=== PATIENT | female | born 1975 | race Caucasian/White ===

== ENCOUNTER 2016-11-01 19:02 | Emergency (ER) | payer SELFPAY ==
[~2016-11-01] VITALS: Ht 165.1 cm; Wt 95.3 kg
[2016-11-01 19:16] VITALS: BP 107/57
--- NOTE | 2016-11-01 19:55 | NUR ---
PT TAKEN TO XRAY FROM THE LOBBY
--- NOTE | 2016-11-01 20:03 | NUR ---
PT RETURN FROM XRAY TO THE LOBBY
--- NOTE | 2016-11-01 20:21 | NUR ---
PT TAKEN TO BED 8
--- NOTE | 2016-11-01 20:24 | NUR ---
Dr. Light evaluating patient at bedside.
[2016-11-01] MEDS ORDERED: LIDOCAINE 1% 500 MG/50 ML VIAL INJ ONE (20:40)
--- NOTE | 2016-11-01 20:40 | NUR ---
PATIENT PRESENTS TO ED WITH RT FOOT PAIN, SWELLING, FOR A WEEK, NO TRAUMA NOR INJURY DENIES N/V/D; SKIN IS PINK/WARM/DRY; AAOX4 WITH EVEN AND STEADY GAIT; LUNGS CLEAR BL; HR EVEN AND REGULAR; PT DENIES ANY FEVER, CP, SOB, OR COUGH AT THIS TIME; PATIENT STATES PAIN OF 9/10 AT THIS TIME; PATIENT POSITIONED FOR COMFORT; HOB ELEVATED; BEDRAILS UP X2; BED DOWN.
--- NOTE | 2016-11-01 20:52 | NUR ---
PT IN BED DRESSING ON RIGHT FOOT PER PT, PAIN LEVEL 5/10, NO BLEEDING NOTED ON RIGHT FOOT, RIGHT FOOT STILL SWOLLEN, SKIN WARM TO TOUCH RESP. EVEN AND UNLABORED, NO DISTRESS NOTED AT THIS TIME.
[2016-11-01 21:04] VITALS: BP 99/59
--- NOTE | 2016-11-01 21:05 | NUR ---
Patient discharged with v/s stable. Written and verbal after care instructions given and explained. Patient verbalized understanding. Ambulatory with steady gait. All questions addressed prior to discharge. Advised to follow up with PMD. AND PT AGREED WITH IT. PT ABLE TO DRINK ONE CUP OF ORANGE JUICE AND ATE CUP OF FRUIT, NO DISTRESS NOTED.
== END 2016-11-01 21:05 | disposition home or self-care (01) ==
LOC: MED 19:02
DX: M67.471 Ganglion, right ankle and foot (principal)
CPT/HCPCS: 10060; 73630; 99284; J2001

== ENCOUNTER 2017-08-10 18:38 | Emergency (ER) | payer MEDICAID ==
[~2017-08-10] VITALS: Ht 165.1 cm; Wt 101.0 kg
[2017-08-10 19:11] VITALS: BP 111/69
--- NOTE | 2017-08-10 19:23 | NUR ---
TO LOBBY A/W BED, VSS, EKG DONE, NSR, ERMD NOTED
--- NOTE | 2017-08-10 20:19 | NUR ---
42Y F BIB FAMILY C/O SUBSTERNAL CHEST PAIN THAT IS NON RADIAITING, SHARP, CONSTANT PAIN. PT STATES PAIN IS 9/10. PT STATES PAIN STARTED AROUND 12:30 MIDNIGHT LAST NIGHT. PT DENIES ANY N/V/D AT THE MOMENT. PT AAOX4. BREATHING IS UNLABORED AND EVEN. PT AMBULATED TO ER BED WITH STEADY GAIT.
[2017-08-10] MEDS ORDERED: LORazepam 2 MG/ML VIAL IM ONE (21:00)
[2017-08-10 22:08] VITALS: BP 96/69
== END 2017-08-10 22:08 | disposition home or self-care (01) ==
LOC: MED 18:38
DX: R06.4 Hyperventilation (principal); Z90.49 Acquired absence of other specified parts of digestive tract
CPT/HCPCS: 71045; 81025; 93005; 96372; 99284; J2060; Q0092

== ENCOUNTER 2018-06-10 14:50 | Emergency (ER) | payer MEDICAID ==
[~2018-06-10] VITALS: Ht 172.7 cm; Wt 95.3 kg
[2018-06-10 14:55] VITALS: BP 114/63
--- NOTE | 2018-06-10 14:55 | NUR ---
PT TRIAGED, EKG PERFORMED, EDMD AWARE OF PT STATUS, SENT OUT TO LOBBY AT THIS TIME.
--- NOTE | 2018-06-10 16:09 | NUR ---
PT AMBULATED TO BED 11 AT THIS TIME
--- NOTE | 2018-06-10 16:15 | NUR ---
BIB DAUGHTER C/O STERNAL CP 01/27 ACHING X 2 WEEKS. DENIES NVD, +SOB. RESPIRATIONS E/U AT THIS TIME. PT STATES SHE SAW PCP FOR PAIN MANAGEMENT AND THEY PERFORMED XRAYS WHICH WERE NEGATIVE SO SHE WAS TOLD TO COME TO THE ER. PATIENT IS AA0X4, VSS, BED DOWN, LOCKED, BED RAIL X1, ERMD AWARE AND NOTIFIED OF PATIENT STATUS HX---CHRONIC BACK PAIN, BACK SURGERY RX: GABAPENTIN
[2018-06-10] MEDS ORDERED: diphenhydrAMINE 50 MG/ML VIAL IM ONE (16:35)
[2018-06-10] MEDS ORDERED: MORPHINE SULFATE 4 MG/ML SYR IM ONE (16:35)
[2018-06-10] MEDS ORDERED: LORazepam 2 MG/ML VIAL IM ONE (16:35)
[2018-06-10] MEDS ORDERED: KETOROLAC 60 MG/2 ML VIAL IM ONE (16:35)
--- NOTE | 2018-06-10 16:35 | NUR ---
Patient being evaluated by physician at bedside.
--- NOTE | 2018-06-10 18:31 | NUR ---
Patient discharged with v/s stable. Written and verbal after care instructions given and explained. Patient alert, oriented and verbalized understanding of instructions. Ambulatory with steady gait. All questions addressed prior to discharge. ID band removed. Patient advised to follow up with PMD. Rx of TRAMDOL given. Patient educated on indication of medication including possible reaction and side effects. Opportunity to ask questions provided and answered.
[2018-06-10 18:34] VITALS: BP 108/60
== END 2018-06-10 18:31 | disposition home or self-care (01) ==
LOC: MED 14:50
DX: M54.9 Dorsalgia, unspecified (principal); G89.29 Other chronic pain; R07.9 Chest pain, unspecified; Z98.890 Other specified postprocedural states
CPT/HCPCS: 93005; 96372; 99283; J1200; J1885; J2060; J2270

== ENCOUNTER 2018-09-15 08:31 | Emergency (ER) | payer MEDICAID ==
[~2018-09-15] VITALS: Ht 165.1 cm; Wt 105.8 kg
[2018-09-15 08:36] VITALS: BP 113/55
--- NOTE | 2018-09-15 08:37 | NUR ---
PATIENT AMBULATED TO BED 11
--- NOTE | 2018-09-15 08:51 | NUR ---
BIB SELF W/ CO LOWER BACK SHARP PAIN RADIATING TO LLE X 1 WK. BOTH LEGS EDEMAOUS AND LEG FOOT NOTICED. DENIES N/V/D; SKIN IS PINK/WARM/DRY; AAOX4 WITH EVEN AND STEADY GAIT; PT DENIES ANY FEVER, CP, SOB, OR COUGH AT THIS TIME; PATIENT STATES PAIN OF 10/10 AT THIS TIME; VSS; PATIENT POSITIONED FOR COMFORT; HOB ELEVATED; BEDRAILS UP X2; BED DOWN. ER MD MADE AWARE OF PT STATUS. DAUGHTER IS AT BEDSIDE.
[2018-09-15] MEDS ORDERED: MORPHINE SULFATE 4 MG/ML SYR IM ONE (09:00)
[2018-09-15] MEDS ORDERED: KETOROLAC 30 MG/ML VIAL IM ONE (09:00)
[2018-09-15 09:51] VITALS: BP 97/63
--- NOTE | 2018-09-15 09:52 | NUR ---
Patient discharged with v/s stable. Written and verbal after care instructions given and explained. Patient verbalized understanding. Ambulatory with steady gait. All questions addressed prior to discharge. Advised to follow up with PMD. ID band removed. Education given to pt regading her low blood pressure.
== END 2018-09-15 09:52 | disposition home or self-care (01) ==
LOC: MED 08:31
DX: M54.9 Dorsalgia, unspecified (principal); G89.29 Other chronic pain
CPT/HCPCS: 81002; 81025; 96372; 99283; J1885; J2270

== ENCOUNTER 2018-12-13 13:45 | Emergency (ER) | payer MEDICAID ==
[~2018-12-13] VITALS: Ht 165.1 cm; Wt 104.3 kg
[2018-12-13 13:50] VITALS: BP 114/90
--- NOTE | 2018-12-13 13:55 | NUR ---
PT WHEELED TO LOBBY AT THIS TIME, VSS
--- NOTE | 2018-12-13 14:10 | NUR ---
PT TO ER BED 2
--- NOTE | 2018-12-13 14:32 | NUR ---
C/O GROUND LEVEL MECHANICAL FALL X 4 DAYS AGO---LOWER BACK PAIN EXACERBATION FROM LOWER BACK TO LLE --- PT CURRENTLY SEEING PAIN SPECIALIST ON [place] BUT SHE STATES EVEN TAKING 2 TABS DOES NOT TAKE PAIN AWAY NEURO APPT RECENTLY FOR CYST TO BACK
[2018-12-13] MEDS ORDERED: KETOROLAC 30 MG/ML VIAL IM ONE (14:35)
[2018-12-13] MEDS ORDERED: fentaNYL 0.05 MG/ML VIAL NS ONE (14:35)
[2018-12-13] MEDS ORDERED: DIAZEPAM 5 MG TAB PO ONE (14:35)
--- NOTE | 2018-12-13 14:36 | NUR ---
DR GARCIA AT BEDSIDE FOR PT EVALUATION
[2018-12-13 15:26] VITALS: BP 103/64
--- NOTE | 2018-12-13 15:26 | NUR ---
Patient discharged with v/s stable. Written and verbal after care instructions given and explained. Patient alert, oriented and verbalized understanding of instructions. Ambulatory with steady gait. All questions addressed prior to discharge. ID band removed. Patient advised to follow up with PMD. Rx of VALIUM, NARCAN NASAL SPRAY, NAPROSYN given. Patient educated on indication of medication including possible reaction and side effects. Opportunity to ask questions provided and answered.
== END 2018-12-13 15:26 | disposition home or self-care (01) ==
LOC: MED 13:45
DX: G89.29 Other chronic pain (principal); M54.9 Dorsalgia, unspecified; M25.562 Pain in left knee; Z98.890 Other specified postprocedural states
CPT/HCPCS: 81002; 81025; 96372; 99283; J1885; J3010

== ENCOUNTER 2020-09-08 07:47 | Emergency (ER) | payer MEDICAID ==
[~2020-09-08] VITALS: Ht 162.6 cm; Wt 103.0 kg
[2020-09-08 07:49] VITALS: BP 113/63
--- NOTE | 2020-09-08 07:54 | NUR ---
PATIENT AMBULATED TO BED 8
--- NOTE | 2020-09-08 08:03 | NUR ---
Patient being evaluated by DR KOHLER at bedside.
--- NOTE | 2020-09-08 08:03 | NUR ---
45 y/o female c/o low back pain x1 week. Pt states 10/10 numbness to lower back and left leg radiating lower abd. Pt denies any recent trauma or injury. Denies Nausea, Vomiting. Tender upon palpation. Medhx: chronic back pain, 2 back surgeries NKA
[2020-09-08] MEDS: KETOROLAC 30 MG/ML VIAL IM ONE (08:16)
[2020-09-08] MEDS: oxyCODONE/APAP 5/325 MG 1 TAB TAB PO ONE (08:16)
[2020-09-08] MEDS: diazePAM 5 MG TAB PO ONE (08:17)
[2020-09-08 09:11] VITALS: BP 113/63
--- NOTE | 2020-09-08 09:11 | NUR ---
Patient discharged with v/s stable. Written and verbal after care instructions given and explained. Patient verbalized understanding. Ambulatory with steady gait. All questions addressed prior to discharge. Advised to follow up with PMD.
== END 2020-09-08 09:11 | disposition home or self-care (01) ==
LOC: MED 07:47
DX: M54.5 Low back pain (principal)
CPT/HCPCS: 81002; 81025; 96372; 99283; J1885

== ENCOUNTER 2021-03-02 10:10 | Emergency (ER) | payer MEDICAID ==
[~2021-03-02] VITALS: Ht 162.6 cm; Wt 102.1 kg
[2021-03-02 10:14] VITALS: BP 127/79
[2021-03-02] MEDS ORDERED: oxyCODONE/APAP 5/325 MG 1 TAB TAB PO ONE (10:35)
[2021-03-02] MEDS ORDERED: DEXAMETHASONE 10 MG/ML VIAL IM ONE (10:35)
[2021-03-02] MEDS ORDERED: KETOROLAC 60 MG/2 ML VIAL IM ONE (10:35)
--- NOTE | 2021-03-02 11:09 | NUR ---
46 Y/O F BIB SELF FROM HOME, PATIENT PRESENTS TO ED WITH CHRONIC BACK PAIN, PT STATES SHE HAD SPINAL FUSION SURGERY IN 2011 AND HAS ALWAYS HAD LOWER BACK PAIN. PT STATES PAIN WORSENED 3 DAYS AGO WITH MEDICATION PROVIDING NO RELIEF. DENIES N/V/D, HEMATURIA, ABD PAIN, PELVIC PAIN OR DYSURIA; SKIN IS PINK/WARM/DRY; AAOX4 WITH EVEN AND STEADY GAIT; LUNGS CLEAR BL; HR EVEN AND REGULAR; PT DENIES ANY FEVER, CP, SOB, OR COUGH AT THIS TIME; PATIENT STATES PAIN OF 10/10 AT THIS TIME; VSS; PATIENT POSITIONED FOR COMFORT; HOB ELEVATED; BEDRAILS UP X2; BED DOWN. ER MD MADE AWARE OF PT STATUS. PMH: SPINAL FUSION SURGERY 2011 MED: [facility]CO (LAST DOSE 1 AM TODAY) NO RELIEF NKA
[2021-03-02] MEDS ORDERED: METH4TAB1 PO (13:28)
[2021-03-02] MEDS ORDERED: CYCL-711 PO (13:28)
[2021-03-02] MEDS ORDERED: NAPR-54 PO (13:28)
[2021-03-02 13:41] VITALS: BP 121/76
--- NOTE | 2021-03-02 13:41 | NUR ---
Patient discharged with v/s stable. Written and verbal after care instructions given [place] and explained. Patient alert, oriented and verbalized understanding of instructions. Ambulatory with steady gait. All questions addressed prior to discharge. ID band removed. Patient advised to follow up with PMD. Rx of FLEXERIL, MEDROL, AND NAPROSYN given. Patient educated on indication of medication including possible reaction and side effects. Opportunity to ask questions provided and answered.
== END 2021-03-02 13:41 | disposition home or self-care (01) ==
LOC: MED 10:10
DX: M54.40 Lumbago with sciatica, unspecified side (principal); D64.9 Anemia, unspecified; Z98.890 Other specified postprocedural states; Z79.899 Other long term (current) drug therapy
CPT/HCPCS: 81002; 81025; 96372; 99284; J1100; J1885

== ENCOUNTER 2021-04-29 19:26 | Emergency (ER) | payer MEDICAID ==
[~2021-04-29] VITALS: Ht 162.6 cm; Wt 99.8 kg
[~2021-04-29 19:26] MED LIST: CYCL-711 PO; METH4TAB1 PO; NAPR-54 PO
[2021-04-29 20:28] VITALS: BP 116/75
--- NOTE | 2021-04-29 20:31 | NUR ---
TO LOBBY A/W BED VIA W/C
[2021-04-29] MEDS ORDERED: KETOROLAC 60 MG/2 ML VIAL IM ONE (22:40)
[2021-04-29] MEDS ORDERED: IBUP-2218 PO (23:37)
[2021-04-30] MEDS ORDERED: KETOROLAC 60 MG/2 ML VIAL IM ONE (00:03)
--- NOTE | 2021-04-30 00:30 | NUR ---
Patient discharged with v/s stable. Written and verbal after care instructions given and explained. Patient alert, oriented and verbalized understanding of instructions. Ambulatory with steady gait. All questions addressed prior to discharge. ID band removed. Patient advised to follow up with PMD. Rx of ibuprofen given. Opportunity to ask questions provided and answered.
== END 2021-04-30 00:30 | disposition home or self-care (01) ==
LOC: MED 19:26
DX: M54.50 Low back pain, unspecified (principal); M25.561 Pain in right knee; M25.562 Pain in left knee; Z79.899 Other long term (current) drug therapy; Z98.890 Other specified postprocedural states
CPT/HCPCS: 72110; 73502; 73562; 96372; 99284; J1885

== ENCOUNTER 2021-08-05 19:19 | Emergency (ER) | payer MEDICAID ==
[~2021-08-05] VITALS: Ht 162.6 cm; Wt 106.6 kg
[~2021-08-05 19:19] MED LIST changes: +IBUP-2218 PO
[2021-08-05 19:39] VITALS: BP 109/58
--- NOTE | 2021-08-05 19:44 | NUR ---
patient to lobby with urine cup in hand
--- NOTE | 2021-08-05 19:53 | NUR ---
pt to xr
[2021-08-05 20:29] LABS: BASOPHILS # (AUTO) 0.1 K/uL (0.00-0.22); BASOPHILS % (AUTO) 0.5 % (0.0-2.0); EOSINOPHILS # (AUTO) 0.2 K/uL (0-0.4); EOSINOPHILS % (AUTO) 1.8 % (0.0-4.0); HEMATOCRIT 35.5 % (36-48); LYMPHOCYTES # (AUTO) 3.2 K/uL (2.5-16.5); LYMPHOCYTES % (AUTO) 25.8 % (20.5-51.1); MEAN CORPUSCULAR HEMOGLOBIN 19 pg (27-31); MEAN CORPUSCULAR HGB CONC 31 g/dL (33-37); MEAN CORPUSCULAR VOLUME 61.7 fL (80-94); MONOCYTES # (AUTO) 1.1 K/uL (0.8-1.0); MONOCYTES % (AUTO) 8.7 % (1.7-9.3); NEUTROPHILS # (AUTO) 7.7 K/uL (1.8-7.7); NEUTROPHILS % (AUTO) 63.2 % (42.2-75.2); PLATELET COUNT (AUTO) 356 K/uL (140-450); RED BLOOD CELL COUNT(AUTO) 5.75 MIL/uL (4.20-5.40); WHITE BLOOD COUNT (AUTO) 12.3 K/uL (4.8-10.8)
[2021-08-05 21:19] LABS: ALBUMIN 3.6 g/dL (3.4-5.0); ANION GAP 13.1 (8-16); ASPARTATE AMINOTRANSFERASE 13 U/L (15-37); CARBON DIOXIDE 27.9 mmol/L (21-32); CHLORIDE 104 mmol/L (98-107); CREATININE 0.9 mg/dL (0.6-1.3); GFR ARICAN-AMERICAN 87 mL/min (>90); GLUCOSE 105 mg/dL (74-106); SODIUM SERUM 141 mmol/L (136-145); TOTAL BILIRUBIN 0.4 mg/dL (0.0-1.0); UREA NITROGEN, BLOOD 11 mg/dL (7-18)
[2021-08-05] MEDS ORDERED: PROCHLORPERAZINE 5 MG TAB PO ONE ×2 (22:10→22:35)
[2021-08-05] MEDS ORDERED: KETOROLAC 15 MG/ML VIAL IM ONE (22:10)
--- NOTE | 2021-08-05 22:59 | NUR ---
pT CLEARED FOR DC WITH DR. TOLLIVER, VS STABLE ON DC. INSTRUCTIONS REINFORCED, EXITED ED WITH STEADY GAIT AND STABLE VS.
[2021-08-06 01:42] VITALS: BP 98/55
== END 2021-08-05 23:45 | disposition home or self-care (01) ==
LOC: MED 19:19
DX: R51.9 Headache, unspecified (principal); R07.89 Other chest pain; R00.2 Palpitations; Z79.899 Other long term (current) drug therapy
CPT/HCPCS: 36415; 71045; 80053; 81002; 81025; 84484; 85025; 93005; 96372; 99285; J1885; Q0163; Q0164

== ENCOUNTER 2022-08-04 17:51 | Emergency (ER) | payer MEDICAID ==
[~2022-08-04] VITALS: Ht 162.6 cm; Wt 108.9 kg
[2022-08-04 18:06] VITALS: BP 139/83
[2022-08-04] MEDS ORDERED: HYDROcodone/APAP 5/325 MG 1 TAB TAB PO ONE (18:55)
--- NOTE | 2022-08-04 19:15 | NUR ---
c/o 01/27 bilateral knee pain. pt has chronic hx of back and leg pain but per pt, pain worse today. denies any allergies.
[2022-08-04] MEDS ORDERED: NAPR-1704 PO (19:26)
--- NOTE | 2022-08-04 19:26 | NUR ---
pt taken to xray
[2022-08-04 21:52] VITALS: BP 139/83
--- NOTE | 2022-08-04 21:53 | NUR ---
Patient discharged with v/s stable. Written and verbal after care instructions given and explained. New rx naproxen. Patient verbalized understanding. Ambulatory with crutches. Taken home by daughter. All questions addressed prior to discharge. Advised to follow up with PMD.
== END 2022-08-04 21:53 | disposition home or self-care (01) ==
LOC: MED 17:51
DX: S80.02XA Contusion of left knee, initial encounter (principal); Z79.899 Other long term (current) drug therapy; W18.30XA Fall on same level, unspecified, initial encounter; Y93.89 Activity, other specified; Y92.89 Other specified places as the place of occurrence of the external cause; Y99.8 Other external cause status
CPT/HCPCS: 73562; 99283

== ENCOUNTER 2022-08-15 13:53 | Emergency (ER) | payer MEDICAID ==
[~2022-08-15] VITALS: Ht 162.6 cm; Wt 108.9 kg
[~2022-08-15 13:53] MED LIST changes: +NAPR-1704 PO
[2022-08-15 14:00] VITALS: BP 124/74
[2022-08-15] MEDS ORDERED: ALBUTEROL 0.083% 2.5 MG/3 ML NEBU INH ONE (15:05)
--- NOTE | 2022-08-15 15:14 | NUR ---
PATIENT AMBULATED TO BED 11.
[2022-08-15 15:42] LABS: BASOPHILS % (AUTO) 0.6 % (0.0-2.0); EOSINOPHILS # (AUTO) 0.5 K/uL (0-0.4); EOSINOPHILS % (AUTO) 8.3 % (0.0-4.0); HEMATOCRIT 32.6 % (36-48); HEMOGLOBIN 10.6 g/dL (12.0-16.0); LYMPHOCYTES # (AUTO) 2.2 K/uL (2.5-16.5); LYMPHOCYTES % (AUTO) 34.7 % (20.5-51.1); MEAN CORPUSCULAR HEMOGLOBIN 20 pg (27-31); MEAN CORPUSCULAR HGB CONC 32 g/dL (33-37); MEAN CORPUSCULAR VOLUME 61.2 fL (80-94); MONOCYTES # (AUTO) 0.5 K/uL (0.8-1.0); MONOCYTES % (AUTO) 7.4 % (1.7-9.3); NEUTROPHILS # (AUTO) 3.1 K/uL (1.8-7.7); PLATELET COUNT (AUTO) 336 K/uL (140-450); RED BLOOD CELL COUNT(AUTO) 5.33 MIL/uL (4.20-5.40); RED CELL DISTRIBUTION WIDTH 16.6 % (11.6-13.7); WHITE BLOOD COUNT (AUTO) 6.4 K/uL (4.8-10.8)
--- NOTE | 2022-08-15 15:42 | NUR ---
47 YO FEMALE BIBS. PATIENT STATES SHE WAS AT A WAREHOUSE ON THURSDAY, IN A LITTLE ROOM. MAINTANENCE CAME IN TO CLEAN UP, PER PATIENT MAINT USED A STRONG SPRAY, WHICH MADE HER COUGH. EVER SINCE INCIDENT PATIENT STATES SHE FEELS WEIRD. PT STATED SHE BEGAN TO HAVE CP, SOB, BACK PAIN.
[2022-08-15 16:13] LABS: ALBUMIN 3.6 g/dL (3.4-5.0); ASPARTATE AMINOTRANSFERASE 27 U/L (15-37); CARBON DIOXIDE 25.8 mmol/L (21-32); CHLORIDE 104 mmol/L (98-107); CREATININE 0.7 mg/dL (0.6-1.3); GFR ARICAN-AMERICAN 116 mL/min (>90); GLUCOSE 90 mg/dL (74-106); POTASSIUM 3.8 mmol/L (3.5-5.1); SODIUM SERUM 139 mmol/L (136-145); TOTAL BILIRUBIN 0.4 mg/dL (0.0-1.0); UREA NITROGEN, BLOOD 8 mg/dL (7-18)
[2022-08-15] MEDS ORDERED: ALBU0.0912 IH (16:38)
[2022-08-15] MEDS ORDERED: PRED20TA5 PO (16:38)
--- NOTE | 2022-08-15 16:55 | NUR ---
pt up for d/c per PA billingsley no need to repeat troponin. pt reports feeling better after breathing trt. vss
--- NOTE | 2022-08-15 17:05 | NUR ---
Patient discharged with v/s stable. Written and verbal after care instructions given and explained. Patient alert, oriented and verbalized understanding of instructions. Ambulatory with steady gait. All questions addressed prior to discharge. ID band removed. Patient advised to follow up with PMD. Rx of prednisone, albuterol given. Patient educated on indication of medication including possible reaction and side effects. Opportunity to ask questions provided and answered.
[2022-08-15 17:06] VITALS: BP 100/64
== END 2022-08-15 17:02 | disposition home or self-care (01) ==
LOC: MED 13:53
DX: J20.9 Acute bronchitis, unspecified (principal); D64.9 Anemia, unspecified; R03.0 Elevated blood-pressure reading, without diagnosis of hypertension; Z79.899 Other long term (current) drug therapy; Z79.1 Long term (current) use of non-steroidal anti-inflammatories (NSAID)
CPT/HCPCS: 36415; 71045; 80053; 84484; 85025; 93005; 94640; 99285; J7613; Q0092

== ENCOUNTER 2022-08-19 12:13 | Emergency (ER) | payer MEDICAID ==
[~2022-08-19] VITALS: Ht 162.6 cm; Wt 108.9 kg
[~2022-08-19 12:13] MED LIST changes: +ALBU0.0912 IH; +PRED20TA5 PO
[2022-08-19 12:30] VITALS: BP 134/60
[2022-08-19] MEDS ORDERED: PROCHLORPERAZINE 10 MG/2 ML VIAL IVP ONE (15:20)
[2022-08-19] MEDS ORDERED: KETOROLAC 15 MG/ML VIAL IVP ONE (15:20)
[2022-08-19] MEDS ORDERED: NACL 0.9% 1,000 ML IV ONE (15:20)
[2022-08-19] MEDS ORDERED: diphenhydrAMINE 50 MG/ML VIAL IVP ONE (15:20)
--- NOTE | 2022-08-19 16:34 | NUR ---
47 YO FEMALE PRESENTS TO ED . STATES PAIN TO HEAD AND LUNGS. STARTED LAST THURSDAY. STATES VOMITING ON THURSDAY, AND INCREASED THIS MORNING. PATIENT STATES COMING TO ED FOR SAME ISSUE LAST THURSDAY.
[2022-08-19 16:38] VITALS: BP 101/60
[2022-08-19] MEDS ORDERED: AMOX-999 PO (16:47)
[2022-08-19] MEDS ORDERED: AMOXIL/CLAVULANATE 500/125 MG 1 TAB PO ONE (16:50)
--- NOTE | 2022-08-19 18:02 | NUR ---
Patient discharged with v/s stable. Written and verbal after care instructions given and explained. Patient alert, oriented and verbalized understanding of instructions. Ambulatory with steady gait. All questions addressed prior to discharge. ID band removed. Patient advised to follow up with PMD. Rx of AMOXICILLIN/POTASSIUM CLAV given. Patient educated on indication of medication including possible reaction and side effects. Opportunity to ask questions provided and answered.
== END 2022-08-19 18:01 | disposition home or self-care (01) ==
LOC: MED 12:13
DX: J32.0 Chronic maxillary sinusitis (principal); R51.9 Headache, unspecified; H53.8 Other visual disturbances; M54.50 Low back pain, unspecified; Z79.899 Other long term (current) drug therapy; Z98.890 Other specified postprocedural states
CPT/HCPCS: 70450; 93005; 96361; 96374; 96375; 99285; J0780; J1200; J1885; J7030

== ENCOUNTER 2023-04-06 20:22 | Emergency (ER) | payer MEDICAID ==
[~2023-04-06] VITALS: Ht 165.1 cm; Wt 108.9 kg
[~2023-04-06 20:22] MED LIST changes: +AMOX-999 PO
[2023-04-06 20:46] VITALS: BP 101/71; PULSE 89; RESP 20; TEMP 97.1; O2SAT 99
[2023-04-06] MEDS ORDERED: KETOROLAC 60 MG/2 ML VIAL IM ONE (22:15)
[2023-04-06] MEDS ORDERED: HYDROcodone/APAP 5/325 MG 1 TAB TAB PO ONE (22:15)
[2023-04-06 22:27] VITALS: BP 101/53; PULSE 71; RESP 16; O2SAT 99
[2023-04-06] MEDS ORDERED: NAPR-1704 PO (23:09)
[2023-04-06] MEDS ORDERED: TRAM-748 PO (23:09)
== END 2023-04-06 23:37 | disposition home or self-care (01) ==
LOC: MED 20:22
DX: M54.50 Low back pain, unspecified (principal); M43.26 Fusion of spine, lumbar region; Z79.899 Other long term (current) drug therapy
CPT/HCPCS: 96372; 99283; J1885

== ENCOUNTER 2023-05-04 15:34 | Emergency (ER) | payer MEDICAID ==
[~2023-05-04] VITALS: Ht 167.6 cm; Wt 72.6 kg
[~2023-05-04 15:34] MED LIST changes: +TRAM-748 PO
[2023-05-04 16:22] VITALS: BP 132/76; PULSE 86; RESP 18; TEMP 98; O2SAT 98
[2023-05-04] MEDS ORDERED: MORPHINE SULFATE 4 MG/ML SYR IM ONE (17:40)
[2023-05-04] MEDS ORDERED: MORPHINE SULFATE 4 MG/ML SYR ONE (18:53)
== END 2023-05-04 19:25 | disposition home or self-care (01) ==
LOC: MED 15:34
DX: S39.012A Strain of muscle, fascia and tendon of lower back, initial encounter (principal); S30.0XXA Contusion of lower back and pelvis, initial encounter; Z98.890 Other specified postprocedural states; Z79.899 Other long term (current) drug therapy; Z79.2 Long term (current) use of antibiotics; Z79.1 Long term (current) use of non-steroidal anti-inflammatories (NSAID); W18.39XA Other fall on same level, initial encounter; Y92.89 Other specified places as the place of occurrence of the external cause; Y93.89 Activity, other specified; Y99.8 Other external cause status
CPT/HCPCS: 72100; 72220; 96372; 99284; J2270

== ENCOUNTER 2023-11-13 19:44 | Emergency (ER) | payer MEDICAID ==
[~2023-11-13] VITALS: Ht 170.2 cm; Wt 106.6 kg
[~2023-11-13 19:44] MED LIST changes: +NAPR-337 PO; -NAPR-54 PO
[2023-11-13 20:08] VITALS: BP 133/78; PULSE 82; RESP 16; TEMP 97.2; O2SAT 99
[2023-11-13 20:13] VITALS: BP 133/78; PULSE 82; RESP 16; TEMP 97.2
[2023-11-13] MEDS: METOCLOPRAMIDE 10 MG/2 ML INJ VIAL IM ONE (20:34)
[2023-11-13] MEDS: ACETAMINOPHEN EXTRA STRENGTH 500 MG TAB PO ONE (20:35)
[2023-11-13] MEDS: KETOROLAC 30 MG/ML VIAL IM ONE (21:18)
[2023-11-13 21:51] VITALS: O2SAT 98
== END 2023-11-13 22:06 | disposition home or self-care (01) ==
LOC: MED 19:44
DX: R51.9 Headache, unspecified (principal); H93.13 Tinnitus, bilateral; Z20.822 Contact with and (suspected) exposure to COVID-19; Z79.899 Other long term (current) drug therapy
CPT/HCPCS: 70450; 87426; 96372; 99285; J1885; J2765